=== PATIENT | male | born 1965 | race Caucasian/White ===

== ENCOUNTER 2020-02-01 08:48 | Outpatient (CLI) | payer OTHER, SELFPAY ==
[2020-02-01 09:54] LABS: Alanine Aminotransferase 22 U/L (4-50); Albumin Level 4.6 g/dL (3.5-5.1); Alkaline Phosphatase 54 U/L (38-126); Anion Gap 8 mmol/L (8-16); Aspartate Amino Transferase 33 U/L (17-59); Bilirubin,Total 0.6 mg/dL (0.2-1.3); Blood Urea Nitrogen 14 mg/dL (9-20); Calcium 9.7 mg/dL (8.4-10.2); Carbon Dioxide 29 mmol/L (22-30); Chloride 104 mmol/L (98-107); Cholesterol 208 mg/dL (0-200); Estimated Glomerular Filt Rate > 60; Glucose 101 mg/dL (75-110); HDL Direct 98 mg/dL; Potassium 4.3 mmol/L (3.4-5.0); Sodium 141 mmol/L (137-145); Triglycerides 85 mg/dL (<150)
[2020-02-01 09:58] LABS: LDL Cholesterol Direct 84 mg/dL
== END 2020-02-01 08:49 | disposition home or self-care (01) ==
PROVIDERS: PCP Family Medicine; Visit Provider Physician Assistant
DX: Z13.1 Encounter for screening for diabetes mellitus (principal); Z13.220 Encounter for screening for lipoid disorders
CPT/HCPCS: 36415; 80053; 80061

== ENCOUNTER 2021-01-14 08:07 | Outpatient (CLI) | payer OTHER, SELFPAY ==
[2021-01-14 08:57] LABS: Alanine Aminotransferase 16 U/L (4-50); Albumin Level 4.3 g/dL (3.5-5.1); Alkaline Phosphatase 49 U/L (38-126); Anion Gap 8 mmol/L (8-16); Aspartate Amino Transferase 28 U/L (17-59); Bilirubin,Total 0.6 mg/dL (0.2-1.3); Blood Urea Nitrogen 14 mg/dL (9-20); Calcium 9.2 mg/dL (8.4-10.2); Carbon Dioxide 27 mmol/L (22-30); Chloride 106 mmol/L (98-107); Cholesterol 200 mg/dL (0-200); Estimated Glomerular Filt Rate > 60; Glucose 99 mg/dL (65-110); HDL Direct 95 mg/dL; Potassium 4.3 mmol/L (3.4-5.0); Sodium 141 mmol/L (137-145); Triglycerides 61 mg/dL (<150)
[2021-01-14 08:59] LABS: Rheumatoid Factor < 8.6 IU/ML (<12)
[2021-01-14 09:08] LABS: LDL Cholesterol Direct 73 mg/dL
[2021-01-14 09:42] LABS: Erythrocyte Sedimentation Rate 14 mm/hr (0-20)
== END 2021-01-14 08:08 | disposition home or self-care (01) ==
LOC: ANHLAB 08:10
PROVIDERS: PCP Family Medicine; Visit Provider Physician Assistant
DX: Z00.00 Encounter for general adult medical examination without abnormal findings (principal); M25.50 Pain in unspecified joint
CPT/HCPCS: 36415; 80053; 80061; 85652; 86038; 86430

== ENCOUNTER 2021-02-05 08:09 | Emergency (ER) | payer OTHER, SELFPAY ==
[2021-02-05 08:20] VITALS: BP 125/85; PULSE 68; RESP 16; TEMP 36.3; O2SAT 99
--- NOTE | 2021-02-05 08:27 | ED.FEMALEGU ---
HPI - Female Genitourinary General Chief complaint: Urogenital-Female Stated complaint: uti Source: patient and RN notes reviewed Limitations: no limitations History of Present Illness HPI Narrative: The patient, previously mostly healthy, presents with urinary symptoms. Patient states he has 1/2-week history of definite urinary frequency, urgency and mild dysuria. No fever, low back pain, vomiting/diarrhea, vaginal discharge-she has had prior hysterectomy. Symptoms are mild, worse with micturition; she has had a prior UTI in the last half year. Related Data Home Medications Medication Instructions Recorded Confirmed cholecalciferol (vitamin D3) 25 25 mcg PO DAILY 12/18/20 12/18/20 mcg (1,000 unit) capsule conjugated estrogens 0.625 mg/gram 0.625 mg VAGINAL 2XW g 12/18/20 12/18/20 vaginal cream ugcncwvu-[id number]-[id number] ac 400 tablet PO 12/18/20 12/18/20 mcg-calcium carb 500 mg-vit K1 20 mcg tablet Allergies Allergy/AdvReac Type Severity Reaction Status Date / Time No Known Allergies Allergy Verified 12/18/20 14:37 Review of Systems Review of Systems: General/Constitutional: No weight loss,fever Eyes: N0: Redness,discharge Ears/Nose/Throat: No: Epistaxis,ear discharge Respiratory: Denies: Hemoptysis Gastrointestinal: No Vomiting, Bleeding-rectal Skin: No Lumps, eruption Neurologic: No Focal Weakness,Sz Hematologic: Denies: Petechiae/Purpura Psychiatric: No: Suicida ideationl All Other Systems: Reviewed and Negative [facility] Past Medical History Medical History (Updated 02/05/21 @ 08:29 by Eddie Michel MD) Hx of hematuria Family History Family History (Updated 12/18/20 @ 14:44 by April Valle CMA) Father Hypertension Malignant neoplasm of prostate Mother Hypertension Social History Social History (Updated 12/18/20 @ 14:45 by April Valle CMA) Smoking status: Never smoker Alcohol intake: current Drinks per week: 3 Substance use: never Substance use type: does not use Gender identity (if verbalized by the patient): Female Agree to blood products: No Comments At time of signature, agree with nursing past medical, surgical, social and family history. There is no relevant family history pertinent to the presenting complaint Exam Narrative: General Appearance: Well appearing, conjunctiva clear Mouth/Throat: Normal appearing, Normal lips Neck: Supple Respiratory: Airway patent, No respiratory distress Cardiovascular: RRR Abdomen: Soft, Non-tender, No massess, No organomegaly (no rebound/ surgical signs), Musculoskeletal: Full ROM Skin: Warm, Dry Neurological: A&O x3,, Normal affect Course Vital Signs Vital signs: Vital Signs Temperature 97.3 F L 02/05/21 08:20 Pulse Rate 68 02/05/21 08:20 Respiratory Rate 16 02/05/21 08:20 Blood Pressure 125/85 02/05/21 08:20 Pulse Oximetry 99 02/05/21 08:20 Temperature 97.3 F L 02/05/21 08:20 Pulse Rate 68 02/05/21 08:20 Respiratory Rate 16 02/05/21 08:20 Blood Pressure 125/85 02/05/21 08:20 Pulse Oximetry 99 02/05/21 08:20 MDM - Female Genitourinary Lab Data Labs: Urine Glucose Negative Reference Range: Negative Urine Bilirubin Negative Reference Range: Negative Urine Ketone Negative Reference Range: Negative Urine Specific Velma 1.020 Reference Range:1.001-1.035 Urine Blood 3+ Reference Range: Negative * * Urine pH 7.0 Reference Range: 5.0-9.0 Urine Protein Negative
== END 2021-02-05 08:38 | disposition home or self-care (01) ==
PROVIDERS: Emergency Provider Emergency Medicine; PCP Family Medicine
DX: N30.90 Cystitis, unspecified without hematuria (principal)
CPT/HCPCS: 81003; 87077; 87086; 87088; 87186; 99213; G0463

== ENCOUNTER → 2021-02-06 17:45 | Outpatient (CLI) | payer OTHER, SELFPAY ==
--- NOTE | ~2021-02-06 | MM_ITS ---
EXAMINATION: MM screening renate BI w kiesha HISTORY: Screening mammogram TECHNIQUE: Craniocaudal and mediolateral oblique 3-D tomosynthesis images were obtained and synthetic 2-D images were generated. CAD analysis was submitted and interpreted. COMPARISON: No prior mammogram is available for comparison at this institution. BREAST PARENCHYMAL COMPOSITION: There are scattered areas of fibroglandular density. FINDINGS: RIGHT BREAST: There are punctate calcifications in the anterior third of the outer breast. No suspici ous mass or architectural distortion is identified. LEFT BREAST: There is a possible mass in the posterior third outer breast best appreciated 9 cm from the nipple on the craniocaudal view. IMPRESSION: 1. Bilateral breast findings as described above which may represent the patient's baseline however no comparison is currently available. 2. Comparison with prior mammograms is necessary. BI-RADS Category 0: Incomplete: Needs comparison with prior mammograms. Reviewed, dictated and finalized at location A. IMPRESSION: 1. Bilateral breast findings as described above which may represent the patient 's baseline however no comparison is currently available. 2. Comparison with prior mammograms is necessary. BI-RADS Category 0: Incomplete: Needs comparison with prior mammograms.
--- NOTE | ~2021-02-06 | DEXA_ITS ---
Bone Density Report Name: Ksenia Yip Age: 55 Sex: Female Ethnicity: White Date of : 1965 Indication: postmenopausal; screening for osteoporosis; hysterectomy; Referring Provider: GRIS, JACKIE Study: Bone densitometry was performed. Exam Date: February 06, 2021 Accession number: [id number] Bone Density: Region BMD T-score Z-score Classification AP Spine (L1-L4) 0.988 -0.5 0.7 Normal Femoral Neck (Left) 0.605 -2.2 -1.0 Osteopenia Total Hip (Left) 0.731 -1.7 -0.9 Osteopenia Femoral Neck (Right) 0.572 -2.5 -1.3 Osteoporosis Total Hip (Right) 0.714 -1.9 -1.1 Osteopenia Total Hip Mean 0.723 -1.8 -1.0 Osteopenia World Health Organization criteria for BMD impression classify patients as: Normal (T-score at or above -1.0), Osteopenia (T-score between -1.0 and -2.5), or Osteoporosis (T-score at or below -2.5). 10-year Fracture Risk: FRAX not reported because: Some T-score for Spine Total or Hip Total or Femoral Neck at or below -2.5 Clinical Information Provided by Patient: Has used the following medications: Vitamin D, MTV Has the following medical conditions: Hysterectomy Patient maximum height was 63.5 Menopause Age: 53 Drinks caffeinated beverages Onset of menses at age 10 Number of children 3 Impression: The patient has osteoporosis, based on the Right Femoral Neck T-score. Discussion: INCREASED RISK OF FRACTURE. BONE DENSITY IS UNDESIRABLY LOW AT ONE OR MORE SKELETAL SITES, CONSISTENT WITH POSTMENOPAUSAL OSTEOPOROSIS. This patient's lowest T-score meets the World Health Organization's (WHO) criteria for osteoporosis at one or more sites (T-score -2.5 or below). In untreated patients, the risk of osteoporotic fracture increases approximately two-fold for each 1.0 SD decrease in T-score. Low bone density is not the only risk factor for fracture; also consider factors such as patient's age, frailty or poor health, risk of falling, risk of injury, previous osteoporotic fracture, family history of osteoporosis, cigarette smoking, low body weight, etc. Not everyone with low bone mineral density has osteoporosis; osteomalacia and other metabolic bone disorders should also be considered. Patients who have osteoporosis should be evaluated for specific diseases and conditions (secondary causes) that may cause or contribute to bone loss. The [place] Association [employer] Clinical Endocrinologists (AACE) and National Osteoporosis Foundation (NOF) recommend pharmacologic intervention for all postmenopausal women whose T-score is in this range. The patient should follow a healthful lifestyle (good nutrition with adequate calcium and vitamin D, and appropriate weight-bearing exercise). Follow-Up: Consider a repeat BMD and Vertebral Fracture Assessment (VFA) exam in 2 years or sooner if medically necessary, to
== END ==
PROVIDERS: PCP Family Medicine; Visit Provider Nurse Practitioner
DX: Z12.31 Encounter for screening mammogram for malignant neoplasm of breast (principal); R92.8 Other abnormal and inconclusive findings on diagnostic imaging of breast; M85.852 Other specified disorders of bone density and structure, left thigh; M81.0 Age-related osteoporosis without current pathological fracture
CPT/HCPCS: 77063; 77067; 77080

== ENCOUNTER → 2021-03-21 08:21 | Outpatient (CLI) | payer OTHER, SELFPAY ==
--- NOTE | ~2021-03-21 | MM_ITS ---
EXAMINATION: MM diagnostic renate BI w kiesha HISTORY: Indeterminate right breast calcifications and possible left breast mass on screening mammogr am TECHNIQUE: Additional 3-D tomosynthesis images of the breasts were performed and synthetic 2-D images were generated. Magnification views are also obtained of the right. CAD analysis was submitted and i nterpreted. COMPARISON: 02/06/2021, 10/16/2019, 09/05/2018, 05/25/2018 FINDINGS: Left breast: There is a return to baseline fibroglandular appearance with spot compression of the lef t breast in the area questioned on screening mammogram. Right breast: With magnification, the right breast calcifications appear to be similar morphology and distribution to prior mammograms, consistent with benign findings. IMPRESSION: 1. No mammographic evidence of malignancy. 2. Recommend routine screening mammography in one year. BI-RADS Category 2: Benign finding(s). Reviewed, dictated and finalized at location A. [employer]ATED EQUIPMENT ENGINEER TECHNICIAN
== END ==
PROVIDERS: PCP Family Medicine; Visit Provider Obstetrics & Gynecology Gynecology
DX: R92.8 Other abnormal and inconclusive findings on diagnostic imaging of breast (principal)
CPT/HCPCS: 77062; 77066; G0279

== ENCOUNTER 2021-04-24 07:50 | Outpatient (CLI) | payer OTHER, SELFPAY ==
[2021-04-24 09:33] LABS: Vitamin D 25 Hydroxy 78.4 ng/mL
== END 2021-04-24 07:51 | disposition home or self-care (01) ==
PROVIDERS: PCP Family Medicine; Visit Provider Obstetrics & Gynecology Gynecology
DX: M81.0 Age-related osteoporosis without current pathological fracture (principal)
CPT/HCPCS: 36415; 82306

== ENCOUNTER 2021-10-28 12:54 | Outpatient (CLI) | payer OTHER, SELFPAY ==
--- NOTE | ~2021-10-28 | US_ITS ---
US venous doppler [facility] DATE: 10/28/2021 14:46 INDICATION: Neck pain. No injury. TECHNIQUE: AP, open-mouth, lateral, swimmer views COMPARISON: None FINDINGS: C1 and C2 are normally aligned and the odontoid process is intact. No fracture or dislocati on or locked facet or prevertebral soft tissue swelling. There is mild loss of interspace height at C4-5. There is moderately severe degenerative disc disease and mild retrolisthesis at C5-6. There is moderately prominent degenerative disease at C6-7. There is prominent degenerative change at the apophyseal joints throughout the cervical spine and pro minent uncovertebral joint spurring in the mid and lower cervical spine, especially at C5-6. Osteopenia. IMPRESSION: Cervical spondylosis including multilevel degenerative disc disease, most pronounced at C 5-6, with associated mild retrolisthesis at this level Osteopenia Reviewed, dictated and finalized at Location A. Reviewed, dictated and finalized at location B. IMPRESSION: Cervical spondylosis including multilevel degenerative disc disease , most pronounced at C5-6, with associated mild retrolisthesis at this level Osteopenia
== END 2021-10-28 12:55 | disposition home or self-care (01) ==
PROVIDERS: PCP Family Medicine
DX: I83.819 Varicose veins of unspecified lower extremity with pain (principal)
CPT/HCPCS: 93971

== ENCOUNTER 2022-03-09 06:58 | Outpatient (CLI) | payer OTHER, SELFPAY ==
[2022-03-09 07:27] LABS: Alanine Aminotransferase 22 U/L (6-35); Albumin Level 4.3 g/dL (3.5-5.1); Alkaline Phosphatase 46 U/L (38-126); Anion Gap 9 mmol/L (8-16); Aspartate Amino Transferase 29 U/L (14-36); Bilirubin,Total 0.9 mg/dL (0.2-1.3); Blood Urea Nitrogen 11 mg/dL (7-17); Calcium 8.9 mg/dL (8.4-10.2); Carbon Dioxide 27 mmol/L (22-30); Chloride 100 mmol/L (98-107); Cholesterol 211 mg/dL (0-200); Estimated Glomerular Filt Rate > 60; Glucose 100 mg/dL (65-110); HDL Direct 102 mg/dL; Potassium 4.1 mmol/L (3.4-5.0); Sodium 136 mmol/L (137-145); Triglycerides 86 mg/dL (<150)
[2022-03-09 07:38] LABS: LDL Cholesterol Direct 75 mg/dL
[2022-03-12 16:14] LABS: Vitamin D 1,25 (OH)2 Total 45 pg/mL (18-72); Vitamin D2 1,25 (OH)2 <8 pg/mL; Vitamin D3 1,25 (OH)2 45 pg/mL
== END 2022-03-09 06:59 | disposition home or self-care (01) ==
LOC: ANHLAB 06:59
PROVIDERS: PCP Family Medicine; Visit Provider Physician Assistant
DX: Z13.220 Encounter for screening for lipoid disorders (principal); Z13.1 Encounter for screening for diabetes mellitus; E55.9 Vitamin D deficiency, unspecified
CPT/HCPCS: 36415; 80053; 80061; 82652

== ENCOUNTER 2022-04-14 07:50 | Outpatient (CLI) | payer OTHER, SELFPAY ==
[2022-04-14 08:56] LABS: NT Pro B Type Natriuretic Pept 131 pg/mL (5-100)
== END 2022-04-14 07:51 | disposition home or self-care (01) ==
LOC: ANHLAB 07:51
PROVIDERS: PCP Family Medicine; Visit Provider Physician Assistant
DX: R79.89 Other specified abnormal findings of blood chemistry (principal)
CPT/HCPCS: 36415; 83880

== ENCOUNTER → 2022-10-29 15:58 | Outpatient (CLI) | payer OTHER, SELFPAY ==
--- NOTE | ~2022-10-29 | MM_ITS ---
EXAMINATION: MM screening renate BI w kiesha HISTORY: Screening mammogram TECHNIQUE: Craniocaudal and mediolateral oblique 3-D tomosynthesis images were obtained and synthetic 2-D images were generated. CAD analysis was submitted and interpreted. COMPARISON: 03/21/2021, 02/06/2021, 10/16/2019, 09/05/2018, 05/25/2017 BREAST PARENCHYMAL COMPOSITION:There are scattered areas of fibroglandular density. FINDINGS: Stable benign-appearing macrocalcifications at the outer subareolar right breast. Stable sm all intramammary lymph node at the upper, outer right breast. No suspicious mass, calcification, or a rchitectural distortion are identified in either breast to suggest malignancy. There has been no susp icious interval change. IMPRESSION: No mammographic evidence of malignancy. Recommend routine screening mammography in one year. BI-RADS Category 2: Benign finding(s). Reviewed, dictated and finalized at [facility].
== END ==
PROVIDERS: PCP Family Medicine; Visit Provider Obstetrics & Gynecology Gynecology
DX: Z12.31 Encounter for screening mammogram for malignant neoplasm of breast (principal)
CPT/HCPCS: 77063; 77067

== ENCOUNTER → 2023-02-09 13:15 | Outpatient (CLI) | payer OTHER, SELFPAY ==
--- NOTE | ~2023-02-09 | DEXA_ITS ---
Bone Density Report Name: JENNY GIFFORD Age: 57 Sex: Female Ethnicity: White Date of : 1965 Indication: osteopenia; hysterectomy; postmenopausal Referring Provider: WARREN STEPHEN Study: Bone densitometry was performed. Exam Date: February 09, 2023 Accession number: [id number] Bone Density: Region BMD T-score Z-score Classification AP Spine (L1, L2, L3) 0.992 -0.2 1.1 Normal Femoral Neck (Left) 0.645 -1.8 -0.6 Osteopenia Total Hip (Left) 0.751 -1.6 -0.6 Osteopenia Femoral Neck (Right) 0.601 -2.2 -1.0 Osteopenia Total Hip (Right) 0.736 -1.7 -0.8 Osteopenia Total Hip Mean 0.744 -1.7 -0.7 Osteopenia World Health Organization criteria for BMD impression classify patients as: Normal (T-score at or above -1.0), Osteopenia (T-score between -1.0 and -2.5), or Osteoporosis (T-score at or below -2.5). 10-year Fracture Risk(1): Major Osteoporotic Fracture 9.7% Hip Fracture 1.4% Reported Risk Factors: [place] (), Neck BMD=0.601, BMI=23.8 (1) FRAX(R) Version 3.08. Fracture probability calculated for an untreated patient. Fracture probability may be lower if the patient has received treatment. Previous Exams: Region Exam Age BMD T-score BMD Change BMD Change Date g/cm2 vs Baseline vs Previous AP Spine(L1, L2, L3) 02/09/2023 57 0.992 -0.2 0.047* 0.047* 02/06/2021 55 0.945 -0.7 Total Hip(Left) 02/09/2023 57 0.751 -1.6 0.020 0.020 02/06/2021 55 0.731 -1.7 Total Hip(Right) 02/09/2023 57 0.736 -1.7 0.021 0.021 02/06/2021 55 0.714 -1.9 *Denotes significance at 95% confidence level, LSC for AP Spine = 0.022 g/cm2, LSC for Total Hip = 0.027 g/cm2 Clinical Information Provided by Patient: Has used the following medications: Vitamin D, Calcium, MTV Has the following medical conditions: Hysterectomy Patient maximum height was 63.5 Menopause Age: 53 Drinks caffeinated beverages Onset of menses at age 10 Number of children 3 Impression: The patient has low bone mass, based on the Right Femoral Neck T-score. The patient has an estimated ten-year risk of hip fracture of 1.4% and an estimated ten-year risk of major fracture of 9.7%, based on the WHO FRAX algorithm. No significant bone loss was observed. Discussion: BONE DENSITY IS LOW AT ONE OR MORE SKELETAL SITES. This patient's lowest T-score is low at one or more skeletal sites. It meets the World Health Organizat
== END ==
PROVIDERS: PCP Family Medicine; Visit Provider Obstetrics & Gynecology Gynecology
DX: Z13.820 Encounter for screening for osteoporosis (principal); M81.0 Age-related osteoporosis without current pathological fracture; M85.88 Other specified disorders of bone density and structure, other site
CPT/HCPCS: 77080

== ENCOUNTER 2023-03-02 07:06 | Outpatient (CLI) | payer OTHER, SELFPAY ==
[2023-03-02 07:24] LABS: Hematocrit 37.8 % (37.0-47.0); Hemoglobin 12.6 g/dL (12.0-15.0); Mean Corpuscular HGB Conc 33.3 g/dl (32-36); Mean Corpuscular Hemoglobin 31.4 pg (26-34); Mean Corpuscular Volume 94.3 fl (80-100); Mean Platelet Volume 10.1 fl (7.4-10.4); Platelet Count Result 239 k/mm3 (150-375); Red Blood Count 4.01 M/mm3 (4.2-5.4); Red Cell Distribution Width 12.8 % (11.5-14.5); White Blood Count 4.5 K/mm3 (4.5-10.0)
[2023-03-02 07:39] LABS: Alanine Aminotransferase 21 U/L (6-35); Albumin Level 4.1 g/dL (3.5-5.1); Alkaline Phosphatase 36 U/L (38-126); Anion Gap 3 mmol/L (8-16); Aspartate Amino Transferase 29 U/L (14-36); Bilirubin,Total 0.8 mg/dL (0.2-1.3); Blood Urea Nitrogen 16 mg/dL (7-17); Calcium 9.1 mg/dL (8.4-10.2); Carbon Dioxide 27 mmol/L (22-30); Chloride 106 mmol/L (98-107); Cholesterol 193 mg/dL (0-200); Estimated Glomerular Filt Rate > 60; Glucose 95 mg/dL (65-110); HDL Direct 80 mg/dL; Potassium 3.9 mmol/L (3.4-5.0); Sodium 136 mmol/L (137-145); Triglycerides 79 mg/dL (<150)
[2023-03-02 07:49] LABS: LDL Cholesterol Direct 81 mg/dL
[2023-03-02 07:54] LABS: Free T4 Free Thyroxine 0.96 ng/mL (0.78-2.19)
[2023-03-05 22:42] LABS: Vitamin D 1,25 (OH)2 Total 41 pg/mL (18-72); Vitamin D2 1,25 (OH)2 <8 pg/mL; Vitamin D3 1,25 (OH)2 41 pg/mL
== END 2023-03-02 07:07 | disposition home or self-care (01) ==
LOC: ANHLAB 07:07
PROVIDERS: PCP Family Medicine; Visit Provider Physician Assistant
DX: Z13.1 Encounter for screening for diabetes mellitus (principal); R53.83 Other fatigue; Z13.220 Encounter for screening for lipoid disorders; D64.9 Anemia, unspecified; E55.9 Vitamin D deficiency, unspecified
CPT/HCPCS: 36415; 80053; 80061; 82652; 84439; 84443; 85027

== ENCOUNTER 2024-02-02 15:52 | Outpatient (CLI) | payer OTHER, SELFPAY ==
--- NOTE | ~2024-02-02 | MM_ITS ---
EXAMINATION: MM screening renate BI w kiesha HISTORY: Screening TECHNIQUE: Craniocaudal and mediolateral oblique 3-D tomosynthesis images were obtained and synthetic 2-D images were generated. CAD analysis was submitted and interpreted. COMPARISON: Comparison to multiple prior studies sequentially, with oldest reviewed study dated 05/25. BREAST PARENCHYMAL COMPOSITION: Not dense: There are scattered areas of fibroglandular density. FINDINGS: There is no evidence of suspicious mass, calcification, or architectural distortion to sugg est malignancy in either breast. There has been no suspicious interval change. IMPRESSION: 1. No mammographic evidence of malignancy. 2. Recommend routine screening mammography in one year. BI-RADS Category 1: Negative Reviewed, dictated and finalized at location B.
== END 2024-02-02 15:53 | disposition home or self-care (01) ==
PROVIDERS: PCP Obstetrics & Gynecology Gynecology; Visit Provider Family Medicine
DX: Z12.31 Encounter for screening mammogram for malignant neoplasm of breast (principal)
CPT/HCPCS: 77063; 77067

== ENCOUNTER 2024-05-05 07:44 | Outpatient (CLI) | payer OTHER, SELFPAY ==
[2024-05-05 08:07] LABS: Basophils Absolute Auto 0.1 K/mm3 (0.0-0.1); Basophils Percent Auto 1.2 % (0.2-1.2); Eosinophils Absolute Auto 0.2 K/mm3 (0-0.3); Eosinophils Percent Auto 3.1 % (0-4.4); Hematocrit 37.3 % (37.0-47.0); Hemoglobin 12.6 g/dL (12.0-15.0); Immature Granulocyte Absolute 0.01 K/mm3 (0.00-0.031); Immature Granulocyte Percent A 0.2 % (0-0.5); Lymphocytes Absolute Auto 2.14 K/mm3 (0.9-3.2); Lymphocytes Percent Auto 41.3 % (18.3-44.2); Mean Corpuscular HGB Conc 33.8 g/dl (32-36); Mean Corpuscular Volume 94.7 fl (80-100); Mean Platelet Volume 10.5 fl (7.4-10.4); Monocytes Absolute Auto 0.5 K/mm3 (0.1-0.6); Monocytes Percent Auto 10.4 % (2.6-8.5); Neutrophils Absolute Auto 2.3 K/mm3 (1.3-6.7); Neutrophils Percent Auto 43.8 % (45.5-73.1); Platelet Count Result 239 k/mm3 (150-375); Red Blood Count 3.94 M/mm3 (4.2-5.4); White Blood Count 5.2 K/mm3 (4.5-10.0)
[2024-05-05 08:30] LABS: Alanine Aminotransferase 15 U/L (6-35); Alkaline Phosphatase 38 U/L (38-126); Anion Gap 2 mmol/L (4-12); Aspartate Amino Transferase 26 U/L (14-36); Bilirubin,Total 0.8 mg/dL (0.2-1.3); Blood Urea Nitrogen 13 mg/dL (7-17); Calcium 8.8 mg/dL (8.4-10.2); Carbon Dioxide 26 mmol/L (22-30); Chloride 106 mmol/L (98-107); Cholesterol 195 mg/dL (0-200); Estimated Glomerular Filt Rate > 60; Glucose 99 mg/dL (65-110); HDL Direct 91 mg/dL; Potassium 4.1 mmol/L (3.4-5.0); Sodium 134 mmol/L (137-145); Triglycerides 92 mg/dL (<150)
[2024-05-05 08:41] LABS: LDL Cholesterol Direct 72 mg/dL
[2024-05-05 09:50] LABS: Free T4 Free Thyroxine 1.11 ng/dL (0.78-2.19)
[2024-05-06 11:32] LABS: FSH 90.4 mIU/mL; LH 32.8 mIU/mL
[2024-05-09 22:18] LABS: Estradiol, Ultrasensitive 47 pg/mL
== END 2024-05-05 07:45 | disposition home or self-care (01) ==
LOC: ANHLAB 07:46
PROVIDERS: PCP Family Medicine; Visit Provider Student in an Organized Health Care Education/Training Program
DX: Z00.00 Encounter for general adult medical examination without abnormal findings (principal); Z78.0 Asymptomatic menopausal state; R53.83 Other fatigue
CPT/HCPCS: 36415; 80053; 80061; 82670; 83001; 83002; 84439; 84443; 85025

== ENCOUNTER 2024-06-03 08:36 | Outpatient (CLI) | payer OTHER, SELFPAY ==
--- OUTSIDE RECORDS SUMMARY | 2024-06-03 08:40 | XMS_ITS | Data Portability ---
Author Organization [facility], [address] [facility] ([place]) Address [address] 4th [place] [address] Care Team Providers Care College Director Name Role Phone BEVERLY DAVALOS Primary Care Provider [phone] Assessment Encounter Date Assessment Date Assessment LastModified by Organization Details LastModified Time 10/29/2023 10/29/2023 Impression: Mrs. Yip is doing fairly well 1 week after undergoing high ligation of her left small saphenous vein as well as varicose vein excisions for recurrent varicosities. I do not see any evidence on exam of a DVT, superficial phlebitis, or wound infection. 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 Plan: I advised her that she could use her Sam for comfort but I would prefer she not be in a support stocking. I asked her not to get into [place] for another 4 to 5 days. She is going to watch the incisions for any signs or symptoms of infection and contact my office. The risk of superficial phlebitis is low, but it is not 0 and I discussed this with her. If she does well I will see her back on an as-needed basis. [email or web address] Not available 10/30/2023 07:59:15 Plan of Treatment Reminders Order Date Submit Date Provider Last Modified By Organization Details Last Modified Time Details Appointments None record ed. Lab None record ed. Referral None record ed. Procedures None record ed. Surgeries None record ed. Imaging None record ed. Medication Orders None record ed. Patient TargetsNo targets recorded. Patient InstructionsNo instructions recorded. Reason for Referral None Reported. Problems Name Problem SNOMED Code Status Onset Date Resolution Date Notes Provider Name and Address Organization Details Recorded Time Pain due to varicose veins of lower extremity 542421628 Active Dianna Jarquin null, [facility] 4 15:22:46 Postoperative pain 095504893 Active 2023 Loy Torres MD [address] [place] [address], [phone] , [facility] 4 11:57:26 Problem Notes None recorded. Procedures Surgical History Date Name Laterality Status Provider Name and Address Organization Details Recorded Time 2 excision of varicose vein completed Dianna Jarquin [facility] 09/10/2023 15:22:25 Imaging Results None recorded. Procedure Notes None recorded. Medical Equipment None Reported. Medications Name Sig Start Date Stop Date Status Note LastModified by Organization Details LastModified Time celecoxib 200 mg capsule active Not Available Not Available N ot Available estradiol 0.05 mg/24 hr weekly transdermal patch APPLY 1 PATCH TOPICALLY TO THE SKIN 1 TIME WEEKLY active Not Available Not Available No t Available tramadol 50 mg tablet TAKE 1 TABLET BY MOUTH EVERY 6 HOURS FOR 3 DAYS active Not Available Not Available No t Available hydrocortison e 2.5 % topical cream with perineal applicator APPLY FOUR TIMES DAILY NEEDED active Not Available Not Available No t Available rizatriptan 5 mg tablet TAKE 1 TABLET BY MOUTH AT ONSET OF HEADACHE AND MAY REPEAT 1 TABLET IF NO RELIEF AT LEAST 2 HOURS LATER active Not Available Not Available No t Available ibandronate 150 mg tablet active Not Available Not Availabl e Not Available estradiol patch active Not Available Not Trixie ilable Not Available Vitals Date Recorded Body weight Provider Name an d Address Organization Details Last Updated DateTime 10/29/2023 03738.91 g Dianna Jarquin [facility] 10/29/2023 12:37:30 Date Recorded Heart rate Provider Name an d Address Organization Details Last Updated DateTime 10/29/2023 68 /min Diannagemma Jarquin [facility] 10/29/2023 12:37:39 Date Recorded Oxygen saturation Oxygen saturation in Arterial blood by Pulse oximetry Provider Name and Address Organization Details Last Updated DateTime 10/29/2023 97 % 97 % Dianna Smith [facility] 10/29/2023 12:37:41 Date Recorded Systolic blood pressure Diastolic blood pressure Provider Name and Address Organization Details Last Updated DateTime 10/29/2023 120 mm[Hg] 70 mm[Hg] Dianna Jarquin [facility] 10/29/2023 12:37:35 Social History None recorded. Functional Status None recorded. Mental Status None recorded. Family History Nothing Reported. Medical History No medical history recorded. Gynecological HistoryNo gynecological history recorded. Obstetrics History GPAL:G 0 P 0 0 0 0 Past Encounters Encounter ID Performer Location Encounter Start Date Encounter Closed Date Diagnosis/Indication Diagnosis SNOMED-CT Code Diagnosis ICD10 Code Diagnosis Note [id number] Eddie Qureshi MD [facility] [place] [facility] ([place] [address] [place] [id number] 10/22/2023 08:44:01 11/11/2023 17:04:02 [id number] Dianna Jarquin [facility] ([place] [address] [place] [address], [address] [place] [address] 10/22/2023 08:44:03 11/02/2023 08:06:03 Pain due to varicose veins of lower extremity 704543684 I83.227 [id number] Loy Torres MD [address] [facility] ([place]) [address] [place] [address], [place] [address] 10/29/2023 12:27:32 10/29/2023 14:50:51 Pain due to varicose veins of lower extremity 383244540 I83.819 Health Concerns Section Related Observation LastModified by Organization Detai ls LastModified Time None Recorded Concern Status LastModified by Organization Details LastModified Time None Recorded Advance Directives Directive None Recorded Payers Encounter Date Sequence Insurance Name Policy Number Policy Zamora Covered Member ID Zamora Member ID Guarantor Name 10/22/2023 1 [employer] [facility] [id number] Ksenia Yip [id number] Ksenia Yip 10/22/2023 1 [facility]) [id number] Ksenia Yip [id number] Ksenia Yip 10/29/2023 1 [facility]) [id number] Ksenia Yip [id number] Ksenia Yip Notes Date Note Type Note Provider Name and Address Organization Details Recorded Time 10/22/2023 text/html [facility] PRE-ANEST HETIC EVALUATIONReported bypatient.Reason for Visit:PROPOSED PROCEDURE: LEFT LEG VARICOSE VEIN EXCISION; SURGEON: Lesli Torres; PREOP DIAGNOSIS: Varicose veins of unspecified lower extremities with pain Review of Systems General:Otherwise healthy Prior Anesthetic Complication:no history of anesthesia complications Family Anesthetic Hx:no history of anesthesia complications Physical Exam: AirwayMP II TeethWNL NeckWNL CardiovascularRegular rate and rhythm RespiratoryClear to auscultation bilaterally GastrointestinalNPO status >6 hrs solids, >2 hrs clear liquids Vital Signs:Vital signs reviewed. Please refer to nursing preop note for values Assessment:ASA PS: I Plan:MAC Discussion:I have discussed with the patient the anesthetic plan, alternatives, pertinent risks, and complications; including but not limited to PONV, dental injury, sore throat, FL, stroke, etc. All questions were answered. Patient verbalize(s) understanding and agree(s) to proceed. Eddie Qureshi MD [facility] [place] [address], [phone], [facility] 10/22/2023 09:03:05 10/29/2023 text/html Ksenia Yip retur ns to the office today with her for follow-up of her left leg varicose vein excisions. This delightful 58-year-old woman from [place] underwent ligation of the remnant of her left small saphenous vein along with varicose vein excisions at the [facility] on 10/22/2023. At the time of surgery, the left small saphenous vein itself was not patent but its origin was and this was ligated near the popliteal vein. In addition there was a branch of the left greater saphenous vein that appeared to be contributing to varicosities in the posterior aspect of the mid calf and this was ligated as well. Approximately 7 varicose vein excisions were performed with her in a prone position under a MAC anesthesia. Today she is doing fairly well. 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 She does have some numbness along the lateral aspect of her mid calf and some fullness or throbbing in the posterior calf near the incisions. She used her Sam bandage while at work which helped with her symptoms. There has been no drainage from her incisions and she has not seen a red streak or palpable cord. She is anxious to return to exercise. Loy Torres MD [address] [facility], [place], [address], [facility] 10/30/2023 07:59:36 OBGyn Episode No OBEpisode recorded.
--- OUTSIDE RECORDS SUMMARY | 2024-06-03 08:40 | XMS_ITS | Clinical Summary ---
Author Organization [facility] Address [address] [place] [address]. [place] [address] [place] [address] Care Team Providers Care Recruiter Manager Name Role Phone Lita Beckett MD Primary Care Provider Allergies No known active allergies Medications Vitamin D3, cholecalciferol , 2000 UNIT Tab tablet Take 2,000 Units by mouth daily. Active multi vitamin/mineral s tablet Take 1 tablet by mouth daily. Active magnesium oxide 250 MG tablet Take 1 tablet by mouth daily. Active conjugated estrogens 0.625 MG/GM vaginal cream Place vaginally daily. Active hydrocortisone 2.5 % rectal cream APPLY FOUR TIMES DAILY NEEDED 2 Active ibandronate 150 MG tablet 2 Active Active Problems No known active problems Immunizations Name Administration Dates Next Due MODERNA COVID-19 (12+) MRNA, LNP-S, PF, 100 MCG/ 0.5 ML DOSE 06/03/2020,05/06/2020 Social History Tobacco Use Types Packs/Day Years Used Date Smoking Tobacco: Never Smokeless Tobacco: Never Alcohol Use Standard Drinks/Week Comments Yes 0 (1 standard drink = 0.6 oz pur e alcohol) Comments Unknown Sex and Gender Information Value Date Recorded Sex Assigned at Not on file Legal Sex Female 1:12 PM AIR DIRECTOR Gender Identity Not on file Sexual Orientation Not on file Last Filed Vital Signs Vital Sign Reading Time Taken Comments Blood Pressure 132/73 07/21/2021 12:00 PM CDT Pulse 66 07/21/2021 12:00 PM CDT Temperature 36.2 ??C (97.1 ??F) 07/21/2021 11:34 AM C DT Respiratory Rate 20 07/21/2021 12:00 PM CDT Oxygen Saturation 100% 07/21/2021 12:00 PM CDT Inhaled Oxygen Concentration - - Weight 61.2 kg (135 lb) 07/10/2021 2:21 PM AIR DIRECTOR Height 160 cm (5' 3 ) 07/10/2021 2:21 PM AIR DIRECTOR Body Mass Index 23.91 07/10/2021 2:21 PM AIR DIRECTOR Plan of Treatment Health Maintenance Due Date Last Done Comments Annual Physical 07/05/1966 Hepatitis C 07/05/1981 DTaP, Tdap and Td Vaccines ( 1 - Tdap) 07/05/1982 Mammogram Screening 2003 Zoster Vaccines (1 of 2) 07/05/2013 COVID-19 Vaccine (3 2023-2 5 season) 2024 06/03/2020, 05/06/2020 Influenza Adult (#1) 2024 Colorectal Cancer Screening Colonoscopy (10 Years) 07/22/2031 07/21/2021, 07/21/2021 RSV Immunization or 60+ Years (1 - 1-dose 75+ series) 07/05/2038 Meningococcal B Vaccine Aged Out No l onger eligible based on patient's age to complete this topic Meningococcal Vaccine Aged Out No peggy dominguez eligible based on patient's age to complete this topic Pneumococcal Vaccine: Pediatrics (0 to 5 Years) and At-Risk Patients (6 to 64 Years) Aged Out No longer eligible b ased on patient's age to complete this topic RSV Immunizations Under 20 Months Aged Out No longer eligible b ased on patient's age to complete this topic Procedures Procedure Name Priority Date/Time Associated Diagnosis Comments COLONOSCOPY Routine 07/21/2021 10:05 AM CDT from Last 3 Months or Most Recently Relevant to Health Maintenance Insurance [facility] Care Teams Recruiter Manager Relationship Specialty Start Date End Date Lita Beckett MD [address] [place], [place] [id number] PCP - General FAMILY PRACTICE 07/21/21
--- OUTSIDE RECORDS SUMMARY | 2024-06-03 08:41 | XMS_ITS | Continuity of Care Document ---
Author Organization [facility] Address [address] [place] [address] Phone Care Team Providers Care Research Statistician Name Role Phone Diane Adams MD Unavailable Unavailable Allergies, Adverse Reactions, Alerts Substance Reaction Status Criticality PAROXETINE HCL lethargy, diarrhea Active No Info rmation Medications Medication Instructions Dosage Effective Dates (start - stop) Status Comments Xanax 0.25 mg tablet take 1 tablet by oral route 3 times every day prn as needed - Active Called in 12/13/17 AW Advance Directives Directive Yes / No Effective Date File Name No Information Encounters Encounter Description Practice Location Reason(s) For Visit Diagnoses Date Provider Providers Copied on Encounter [facility], [address], [place], [place], [id number] , tel: [phone] [facility] No Information 9 Bryan Contreras. [address], [facility] [address], [place], [place], [id number] , [place]. tel: [phone] [facility], [address], [place], [place], [address] , tel: [phone] [facility] Encounter for adult health check-up 9 Bryan Contreras. [address], [facility] [address], [place], [place], [id number] , [place]. tel: [phone] Referring Provider: Diane Adams, [address] [facility] [address], [place], [address] . tel:[phone] [facility], [address], [place], [place], [address] , tel: [phone] [facility] No Information 8 Bryan Contreras. [address], [place], [place], [address] , [place]. tel: [phone] [facility], [address], [place], [place], [address] , tel: [phone] [facility] Anxiety disorder, unspecified Diaz Nancie. [address], [address], [place], [place], [address] , [place]. tel: [phone] Referring Provider: Diane Adams, [address], [place], [address] . tel:[phone] [place] [facility], [address], [place], [place], [address] , tel: [phone] [facility] Anxiety disorder, unspecifiedPhysical examArthralgia of both hands 7 Bryan Contreras. [address], [address], [place], [place], [address] , [place]. tel: [phone] Referring Provider: Diane Adams, [address], [place], [address] . tel:[phone] [place] [facility], [address], [place], [place], [address] , tel: [phone] [facility] Physical examAnxiety 6 Bryan Contreras. [address], [address], [place], [place], [address] , [place]. tel: [phone] Referring Provider: Diane Adams, [address], [place], [address] . tel:[phone] Family History Family Member Type Diagnosis Age At Onset Sister Problem (finding) Irritable bowel disease Sister Problem (finding) hypertension Mother Problem (finding) Irritable bowel disease Father Problem (finding) hypertension Maternal grandfather Problem (finding) stroke Brother Problem (finding) hypertension Mother Problem (finding) hypertension Immunizations Vaccine Date Status Comments Tdap administered Source: [facility] unization Record Payers Payer name Insurance type Covered democrat ID Authoriza tion(s) BCBS ACCESS [id number] BCBS INACTIVE OUT OF STATE [id number] Social History Type Description Quantity Date Captured Comments Alcohol Use Details Unknown Caffeine Use Details Unknown Tobacco Use Status No Information Smoking Status No Information Sex Female Chief Complaint And Reason For Visit No Information Reason For Referral Reason For Referral No Information History Of Present Illness Encounter Date Complaint History Of Prese nt Illness No Information Functional Status Date Functional Assessmen t No Information Instructions Date Instruction Additional Infor mation No Information Assessments Type Assessment Date No Information Patient Care Teams Name Effective Dates (start - stop) Status Members No Information
[2024-06-03 10:12] LABS: Anion Gap 8 mmol/L (4-12); Blood Urea Nitrogen 10 mg/dL (7-17); Calcium 9.3 mg/dL (8.4-10.2); Carbon Dioxide 27 mmol/L (22-30); Chloride 101 mmol/L (98-107); Estimated Glomerular Filt Rate > 60; Glucose 92 mg/dL (65-110); Potassium 4.4 mmol/L (3.4-5.0); Sodium 136 mmol/L (137-145)
[2024-06-03 12:43] LABS: Vitamin D 25 Hydroxy > 126.0 ng/mL
== END 2024-06-03 08:37 | disposition home or self-care (01) ==
PROVIDERS: PCP Family Medicine; Visit Provider Student in an Organized Health Care Education/Training Program
DX: E87.1 Hypo-osmolality and hyponatremia (principal); E55.9 Vitamin D deficiency, unspecified
CPT/HCPCS: 36415; 80048; 82306

== ENCOUNTER 2025-02-06 16:04 | Outpatient (CLI) | payer BC, SELFPAY ==
--- NOTE | ~2025-02-06 | MM_ITS ---
EXAMINATION: MM screening [facility] BI w kiesha HISTORY: Screening TECHNIQUE: Craniocaudal and mediolateral oblique 3-D tomosynthesis images were obtained and synthetic 2-D images were generated. CAD analysis was submitted and interpreted. COMPARISON: Comparison to multiple prior studies sequentially, with oldest reviewed study dated 10/16/2019. BREAST PARENCHYMAL COMPOSITION: There are scattered areas of fibroglandular density. FINDINGS: There is no evidence of suspicious mass, calcification, or architectural distortion to suggest malignancy in either breast. Scattered benign-appearing calcifications are present. IMPRESSION: 1. No mammographic evidence of malignancy. 2. Recommend routine screening mammography in one year. BI-RADS Category 2: Benign finding(s). Reviewed, dictated and finalized at location B.
== END 2025-02-06 16:05 | disposition home or self-care (01) ==
LOC: MICIMG 16:05
PROVIDERS: PCP Family Medicine; Visit Provider Obstetrics & Gynecology Gynecology
DX: Z12.31 Encounter for screening mammogram for malignant neoplasm of breast (principal)
CPT/HCPCS: 77063; 77067

== ENCOUNTER 2025-03-13 15:14 | Outpatient (CLI) | payer BC, SELFPAY ==
--- NOTE | ~2025-03-13 | DEXA_ITS ---
Bone Density Report Name: JENNY GIFFORD Age: 59 Sex: Female Ethnicity: White Date of : 1965 Indication: osteopenia; monitoring treatment; hysterectomy; Referring Provider: WARREN STEPHEN Study: Bone densitometry was performed. Exam Date: March 13, 2025 Accession number: [id number] Bone Density: Region BMD T-score Z-score Classification AP Spine(L1, L2) 0.892 -0.8 0.6 Normal Femoral Neck (Left) 0.586 -2.4 -1.0 Osteopenia Total Hip (Left) 0.736 -1.7 -0.6 Osteopenia Femoral Neck (Right) 0.609 -2.2 -0.8 Osteopenia Total Hip (Right) 0.727 -1.8 -0.7 Osteopenia Total Hip Mean 0.732 -1.8 -0.7 Osteopenia World Health Organization criteria for BMD impression classify patients as: Normal (T-score at or above -1.0), Osteopenia (T-score between -1.0 and -2.5), or Osteoporosis (T-score at or below -2.5). 10-year Fracture Risk: FRAX not reported because: Treated for osteoporosis Previous Exams: -- Region Exam Age BMD T-score BMD Change BMD Change Date g/cm2 vs Baseline vs Previous -- AP Spine (L1-L2) 03/13/2025 59 0.892 -0.8 4.2%* -0.8% 02/09/2023 57 0.899 -0.7 5.1%* 5.1%* 02/06/2021 55 0.856 -1.1 Total Hip(Left) 03/13/2025 59 0.736 -1.7 0.7% -2.0% 02/09/2023 57 0.751 -1.6 2.8% 2.8% 02/06/2021 55 0.731 -1.7 Total Hip(Right) 03/13/2025 59 0.727 -1.8 1.7% -1.2% 02/09/2023 57 0.736 -1.7 3.0% 3.0% 02/06/2021 55 0.714 -1.9 -- *Denotes significance at 95% confidence level, LSC for AP Spine = 0.022 g/cm2, LSC for Total Hip = 0.027 g/cm2 Rate of change results reflect vertebral levels common to all scans Clinical Information Provided by Patient: Is being treated for osteoporosis Has used the following medications: Boniva (i.e. ibandronate), Vitamin D, Calcium Has the following medical conditions: Hysterectomy Patient maximum height was 63.5 Menopause Age: 53 Does not regularly consume dairy products Drinks caffeinated beverages Onset of menses at age 10 Number of children 3 Impression: The patient has low bone mass, based on the Left Femoral Neck T-score. No significant bone loss was observed. Discussion: PATIENT UNDER TREATMENT WITH NO SIGNIFICANT BMD LOSS SINCE LAST EXAM. In an untreated patient, BMD typically declines with age. A lack of decline or gain is usually a sign that treatment is efficacious and fracture risk is reduced. It is important to ask patients whether they are taking their medications and to encourage continued and appropriate compliance with their osteoporosis therapies to reduce fracture risk. It is also important to review their risk factors and encourage appropriate calcium and vitamin D intakes, exercise, fall prevention and other lifestyle measures. Follow-Up: Consider a repeat BMD and Vertebral Fracture Assessment (VFA) exam in 2 years or sooner if medically necessary, to reassess this patient's status. Reported by: SIMON on 03/13/2025 3:46:00 PM. Reviewed, dictated and finalized at location A.
== END 2025-03-13 15:15 | disposition home or self-care (01) ==
LOC: MICIMG 15:15
PROVIDERS: PCP Family Medicine Adolescent Medicine; Visit Provider Obstetrics & Gynecology Gynecology
DX: Z78.0 Asymptomatic menopausal state (principal); M85.852 Other specified disorders of bone density and structure, left thigh; M85.851 Other specified disorders of bone density and structure, right thigh
CPT/HCPCS: 77080